=== PATIENT | male | born 1965 | race Caucasian/White ===

== ENCOUNTER 2019-06-28 15:46 | Emergency (ER) | payer SELFPAY ==
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
[2019-06-28] MEDS ORDERED: Orphenadrine Citrate IV* 30 MG/ML 2 ML VIAL IM ONE (16:39)
[2019-06-28] MEDS ORDERED: Ketorolac *IM* INJ* 60 MG/2 ML VIAL IM ONE (16:39)
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
[2019-06-28 20:53] VITALS: BP 166/100
== END 2019-06-28 20:52 | disposition home or self-care (01) ==
LOC: ED 15:46
DX: S16.1XXA Strain of muscle, fascia and tendon at neck level, initial encounter (principal); V49.40XA Driver injured in collision with unspecified motor vehicles in traffic accident, initial encounter; Y92.410 Unspecified street and highway as the place of occurrence of the external cause; M06.9 Rheumatoid arthritis, unspecified; E07.9 Disorder of thyroid, unspecified; E78.00 Pure hypercholesterolemia, unspecified; Z87.891 Personal history of nicotine dependence; Z79.899 Other long term (current) drug therapy
CPT/HCPCS: 70450; 72125; 96372; 99281; J1885; J2360

== ENCOUNTER 2019-12-16 19:12 | Emergency (ER) | payer MEDICARE ==
--- OUTSIDE RECORDS SUMMARY | 2019-12-16 19:21 | XMS REPORT | Continuity of Care Document ---
:1965 External Reference #:[id number] Author Name Amado La (transmitted by agent of provider Laura Woodward) Address [address] [place] [address] Problems Active Problems Provider Date Enthesopathy of wrist AND/OR carpus Ilsa La M.D. Onset: 03/07/2013 Social History Type Date Description Comments Sex Unknown ETOH Use Social Tobacco Use Start: Unknown End: Unknown Patient is a former smoker Recreational Drug Use Never Used Drugs Seat Belt/Car Seat Always uses seat belt Allergies, Adverse Reactions, Alerts Description No Known Drug Allergies Medications Active Medications SIG Qnty Indications Ordering Date Provider Naproxen 1 by mouth 180tabs G43.001 Amado La 06/20/2017 500mg Tablets twice a day as needed Propranolol HCL ER 1 by mouth 90caps G43.001 Amado La 06/20/2017 60mg Caps ER every day 24HR Levothyroxine Sodium 1 PO Q Day 90tabs E03.9 Amado La 07/11/2016 50mcg Tablets Ranitidine HCL 1 by mouth 180tabs K21.9 Amado La 02/17/2016 150mg Tablets twice a day as needed Triamcinolone Acetonide apply three 60gm Amado La 01/27/2016 0.1% times a day Cream as needed Atorvastatin Calcium 1 by mouth 90tabs E78.5 Amado La 10/19/2015 20mg Tablets every day Calcium 600-D 1 by mouth 180tabs M81.0 Amado La 07/21/2015 [id number] twice a day Tablets Mylanta Gas Relief Maximum 1 by mouth K21.9 Amado La Strength every 2 hours Prednisone 1 by mouth Amado La 5mg Tablets once a day Hydroxychloroquine Sulfate 1 by mouth Unknown 200mg twice a day Tablets Medications Administered in Office Medication SIG Qnty Indications Ordering Provider Date Office Emergency Care Ilsa La M.D. 04/16/2019 Injection PPD Injection Mariano Lal 10/30/2013 Immunizations CPT Code Status Date Vaccine Lot # [id number] Given 05/22/2019 Influenza Virus (Quadrivalent)Splitvirus 3 [id number] Years Of Age And Older 16986 Given 05/22/2019 Influenza Virus Vaccine, Quadrivalent, Split, Preservative Free Q2035 Given 07/04/2017 Influenza Virus (Quadrivalent)Splitvirus 3 [id number] Years Of Age And Older Q2035 Given 07/04/2017 Influenza Virus (Quadrivalent)Splitvirus 3 Years Of Age And Older Q2037 Given 10/30/2013 Influenza Vaccine (Fluvirin) 5 Years Of Age Or 7kj4r Older [address] Given 03/12/2013 Tetanus,Diphtheria,Adut/Adol Pertussis [id number] Vital Signs Date Vital Result Comment 11/27/2019 10:30am BP Systolic 128 mmHg BP Diastolic 78 mmHg Heart Rate 78 /min Height 70 inches 5'10" Weight 255.00 lb BMI (Body Mass Index) 36.6 kg/m2 09/04/2019 12:20pm BP Systolic 142 mmHg BP Diastolic 96 mmHg Heart Rate 82 /min Height 70 inches 5'10" Weight 269.00 lb BMI (Body Mass Index) 38.6 kg/m2 Results Test Acquired Date Facility Test Result H/L Range Note Lipid Panel, 11/13/2019 [facility] Cholesterol, 165 mg/dL Normal < 200 [address] [place], [place] [id number] [phone] HDL Cholesterol 34 mg/dL Low > Or = 40 Triglycerides 325 mg/dL High <150 2 LDL-Cholesterol 88 mg/dL(calc) Normal 3 Chol/HDLC Ratio 4.9 (calc) Normal <5.0 Non HDL Cholesterol 131 mg/dL(calc) High <130 4 General Health Panel 11/13/2019 [facility] TSH 3.02 mIU/L Normal 0.40-4.[address] [facility] [address] [place] [address] [phone] T4, Free 1.1 ng/dL Normal 0.8-1.8 CBC (Includes 11/13/2019 [facility] White 8.5 Thousand/uL Normal 3.8-10.8 Diff/PLT) 6 [facility] [place] [address] Count Red Blood Cell Count 5.34 Million/uL Normal 4.20-5.80 Hemoglobin 14.6 g/dL Normal 13.2-17.1 Hematocrit 44.1 % Normal 38.5-50.0 MCV 82.6 fL Normal 80.0-100.0 MCH 27.3 pg Normal 27.0-33.0 MCHC 33.1 g/dL Normal 32.0-36.0 RDW 13.4 % Normal 11.0-15.0 Platelet Count 316 Thousand/uL Normal 140-400 MPV 10.0 fL Normal 7.5-12.5 Absolute Neutrophils 5415 cells/uL Normal 0011-2407 Absolute Lymphocytes 2032 cells/uL Normal 850-3900 Absolute Monocytes 740 cells/uL Normal 200-950 Absolute Eosinophils 272 cells/uL Normal 15-500 Absolute Basophils 43 cells/uL Normal 0-200 Neutrophils 63.7 % Normal 38-80 Lymphocytes 23.9 % Normal 15-49 Monocytes 8.7 % Normal 0-13 Eosinophils 3.2 % Normal 0-8 Basophils 0.5 % Normal 0-2 Comprehensive Metabolic 11/13/2019 [facility] Glucose 95 mg/dL Normal 65-99 5 Panel [address] [place], [place] [id number] [phone] Urea Nitrogen (BUN) 11 mg/dL Normal 7-25 Creatinine 0.86 mg/dL Normal 0.70-1.33 6 eGFR Non-Afr. Chilean 100 mL/min/1.73m2 Normal > Or = 60 eGFR 116 mL/min/1.73m2 Normal > Or = 60 BUN/Creatinine Ratio NOT APPLICABLE (calc) 6-22 Sodium 141 mmol/L Normal 135-146 Potassium 4.2 mmol/L Normal 3.5-5.3 Chloride 105 mmol/L Normal 98-110 Carbon Dioxide 27 mmol/L Normal 20-32 Calcium 9.3 mg/dL Normal 8.6-10.3 Protein, Total 7.4 g/dL Normal 6.1-8.1 Albumin 4.2 g/dL Normal 3.6-5.1 Globulin 3.2 g/dL(calc) Normal 1.9-3.7 Albumin/Globulin Ratio 1.3 (calc) Normal 1.0-2.5 Bilirubin, Total 0.6 mg/dL Normal 0.2-1.2 Alkaline Phosphatase 112 U/L Normal 35-144 Ast 23 U/L Normal 10-35 Alt 28 U/L Normal 9-46 Laboratory test 11/13/2019 [facility] Enhanced PDF PDF IMAGE finding [address] [place] [address] [id number] [phone] CBC (Includes 08/20/2019 [facility] White Blood Cell 7.4 Normal 3.8 -1 Diff/PLT) [address] Count Thousand/u 0.8 [place] [address] L [phone] Red Blood Cell Count 5.18 Million/uL Normal 4.20-5.80 Hemoglobin 14.6 g/dL Normal 13.2-17.1 Hematocrit 44.3 % Normal 38.5-50.0 MCV 85.5 fL Normal 80.0-100.0 MCH 28.2 pg Normal 27.0-33.0 MCHC 33.0 g/dL Normal 32.0-36.0 RDW 12.5 % Normal 11.0-15.0 Platelet Count 317 Thousand/uL Normal 140-400 MPV 9.9 fL Normal 7.5-12.5 Absolute Neutrophils 4270 cells/uL Normal 9738-9377 Absolute Lymphocytes 2087 cells/uL Normal 850-3900 Absolute Monocytes 725 cells/uL Normal 200-950 Absolute Eosinophils 281 cells/uL Normal 15-500 Absolute Basophils 37 cells/uL Normal 0-200 Neutrophils 57.7 % Normal 38-80 Lymphocytes 28.2 % Normal 15-49 Monocytes 9.8 % Normal 0-13 Eosinophils 3.8 % Normal 0-8 Basophils 0.5 % Normal 0-2 Comprehensive Metabolic 08/20/2019 [facility] Glucose 102 mg/dL High 65-99 [address] [place], [place] [id number] [phone] Urea Nitrogen (BUN) 10 mg/dL Normal 7-25 Creatinine 0.97 mg/dL Normal 0.70-1.33 8 eGFR Non-Afr. Chilean 89 mL/min/1.73m2 Normal > Or = 60 eGFR 104 mL/min/1.73m2 Normal > Or = 60 BUN/Creatinine Ratio NOT APPLICABLE (calc) 6-22 Sodium 139 mmol/L Normal 135-146 Potassium 4.0 mmol/L Normal 3.5-5.3 Chloride 104 mmol/L Normal 98-110 Carbon Dioxide 30 mmol/L Normal 20-32 Calcium 9.1 mg/dL Normal 8.6-10.3 Protein, Total 7.0 g/dL Normal 6.1-8.1 Albumin 4.1 g/dL Normal 3.6-5.1 Globulin 2.9 g/dL(calc) Normal 1.9-3.7 Albumin/Globulin Ratio 1.4 (calc) Normal 1.0-2.5 Bilirubin, Total 0.5 mg/dL Normal 0.2-1.2 Alkaline Phosphatase 96 U/L Normal 40-115 Ast 21 U/L Normal 10-35 Alt 22 U/L Normal 9-46 TSH+Free T4 08/20/2019 [facility] TSH 2.56 mIU/L Normal 0.40-4.[address] [place] [address] [phone] T4, Free 0.9 ng/dL Normal 0.8-1.8 Lipid Panel, 08/20/2019 [facility] Cholesterol, 166 mg/dL Normal < [address] [place] [address] [phone] HDL Cholesterol 34 mg/dL Low >40 Triglycerides 336 mg/dL High <150 9 LDL-Cholesterol 87 mg/dL(calc) Normal 10 Chol/HDLC Ratio 4.9 (calc) Normal <5.0 Non HDL Cholesterol 132 mg/dL(calc) High <130 11 Laboratory test 08/20/2019 [facility] Enhanced PDF Report PDF IMAGE finding [address] [id number] OFF [place], [place] [id number] [phone] 1 FASTING:YES FASTING: YES 2 If a non-fasting specimen was collected, consider repeat triglyceride testing on a fasting specimen if clinically indicated. Manuel et al. J. of Clin. Lipidol. 2015;9:129-169. 3 Reference range: <100 Desirable range <100 mg/dL for primary prevention; <70 mg/dL for patients with CHD or diabetic patients with > or = 2 CHD risk factors. LDL-C is now calculated using the Jigar-Waggoner calculation, which is a validated novel method providing better accuracy than the Friedewald equation in the estimation of LDL-C. Jigar SS et al. FALGUNI. 2013;310(19): 2642-0191 (http://education.[employer]/faq/BUY247) 4 For patients with diabetes plus 1 major ASCVD risk factor, treating to a non-HDL-C goal of <100 mg/dL (LDL-C of <70 mg/dL) is considered a therapeutic option. 5 Fasting reference interval 6 For patients >49 years of age, the reference limit for Creatinine is approximately 13% higher for people identified as -Chilean. 7 Fasting reference interval For someone without known diabetes, a glucose value between 100 and 125 mg/dL is consistent with prediabetes and should be confirmed with a follow-up test. 8 For patients >49 years of age, the reference limit for Creatinine is approximately 13% higher for people identified as -Chilean. 9 If a non-fasting specimen was collected, consider repeat triglyceride testing on a fasting specimen if clinically indicated. Jackson et al. J. of Clin. Lipidol. 2015;9:129-169. 10 Reference range: <100 Desirable range <100 mg/dL for primary prevention; <70 mg/dL for patients with CHD or diabetic patients with > or = 2 CHD risk factors. LDL-C is now calculated using the Jigar-Waggoner calculation, which is a validated novel method providing better accuracy than the Friedewald equation in the estimation of LDL-C. Jiagr CLEVELAND et al. FALGUNI. 2013;310(19): 3302-8623 (http://[employer]/faq/YYO175) 11 For patients with diabetes plus 1 major ASCVD risk factor, treating to a non-HDL-C goal of <100 mg/dL (LDL-C of <70 mg/dL) is considered a therapeutic option. 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 N52.01 Erectile dysfunction due to arterial insufficiency I34.0 Nonrheumatic mitral (valve) insufficiency D18.00 Hemangioma unspecified site K21.9 Gastro-esophageal reflux disease without esophagitis R73.01 Impaired fasting glucose L85.1 Acquired keratosis [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 G47.33 Obstructive sleep apnea (adult) (pediatric) G43.001 Migraine w/o aura, not intractable, with status migrainosus I65.23 Occlusion and stenosis of bilateral carotid arteries E03.9 Hypothyroidism, unspecified Office Visit 09/04/2019 12:00p Main Office Amado La E66.09 Other obesity due to excess calories I11.9 Hypertensive heart disease without heart failure 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 N52.01 Erectile dysfunction due to arterial insufficiency I34.0 Nonrheumatic mitral (valve) insufficiency D18.00 Hemangioma unspecified site K21.9 Gastro-esophageal reflux disease without esophagitis R73.01 Impaired fasting glucose L85.1 Acquired keratosis [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 Z71.82 Exercise counseling Z71.9 Counseling, unspecified Z71.3 Dietary counseling and surveillance Office Visit 08/27/2019 12:00p Main Office Amado La I11.9 Hypertensive heart disease without heart failure E66.09 Other obesity due to excess calories G47.33 Obstructive sleep apnea (adult) (pediatric) 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 N52.01 Erectile dysfunction due to arterial insufficiency I34.0 Nonrheumatic mitral (valve) insufficiency D18.00 Hemangioma unspecified site K21.9 Gastro-esophageal reflux disease without esophagitis G43.001 Migraine w/o aura, not intractable, with status migrainosus I65.23 Occlusion and stenosis of bilateral carotid arteries E03.9 Hypothyroidism, unspecified R73.01 Impaired fasting glucose Office Visit 08/01/2019 11:30a Main Office Amado La L85.1 Acquired keratosis [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 I11.9 Hypertensive heart disease without heart failure Assessments Date Code Description Provider 11/27/2019 E66.09 Other obesity due to excess calories [facility] 11/27/2019 I11.9 Hypertensive heart disease without heart failure [facility] 11/27/2019 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 [facility] 11/27/2019 N52.01 Erectile dysfunction due to arterial insufficiency [facility] 11/27/2019 I34.0 Nonrheumatic mitral (valve) insufficiency [facility] 11/27/2019 D18.00 Hemangioma unspecified site [facility] 11/27/2019 K21.9 Gastro-esophageal reflux disease without esophagitis [facility] 11/27/2019 R73.01 Impaired fasting glucose [facility] 11/27/2019 L85.1 Acquired keratosis [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 [facility] 11/27/2019 G47.33 Obstructive sleep apnea (adult) (pediatric) [facility] 11/27/2019 G43.001 Migraine without aura, not intractable, with status [facility] migraino 11/27/2019 I65.23 Occlusion and stenosis of bilateral carotid arteries [facility] 11/27/2019 E03.9 Hypothyroidism, unspecified [facility] 09/04/2019 E66.09 Other obesity due to excess calories [facility] 09/04/2019 I11.9 Hypertensive heart disease without heart failure [facility] 09/04/2019 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 [facility] 09/04/2019 N52.01 Erectile dysfunction due to arterial insufficiency [facility] 09/04/2019 I34.0 Nonrheumatic mitral (valve) insufficiency [facility] 09/04/2019 D18.00 Hemangioma unspecified site [facility] 09/04/2019 K21.9 Gastro-esophageal reflux disease without esophagitis [facility] 09/04/2019 R73.01 Impaired fasting glucose [facility] 09/04/2019 L85.1 Acquired keratosis [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 [facility] 09/04/2019 Z71.82 Exercise counseling [facility] 09/04/2019 Z71.9 Counseling, unspecified Mariano Lal 09/04/2019 Z71.3 Dietary counseling and surveillance Mariano Lal 08/27/2019 I11.9 Hypertensive heart disease without heart failure Mariano Lal 08/27/2019 E66.09 Other obesity due to excess calories Mariano Lal 08/27/2019 G47.33 Obstructive sleep apnea (adult) (pediatric) Mariano Lal 08/27/2019 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 Mariano aLl 08/27/2019 N52.01 Erectile dysfunction due to arterial insufficiency Mariano Lal 08/27/2019 I34.0 Nonrheumatic mitral (valve) insufficiency Mariano Lal 08/27/2019 D18.00 Hemangioma unspecified site Mariano Lal 08/27/2019 K21.9 Gastro-esophageal reflux disease without esophagitis Mariano Lal 08/27/2019 G43.001 Migraine without aura, not intractable, with status Amado La migraino 08/27/2019 I65.23 Occlusion and stenosis of bilateral carotid arteries Mariano Lal 08/27/2019 E03.9 Hypothyroidism, unspecified Mariano Lal 08/27/2019 R73.01 Impaired fasting glucose Mariano Lal 08/01/2019 L85.1 Acquired keratosis [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 Mariano Lal 08/01/2019 I11.9 Hypertensive heart disease without heart failure Amado La Plan of Treatment Future Appointment(s):02/17/2020 9:00 am - Nurse at Main [id number]/25/2020 11: 15 am - Amado La at Main Office Functional Status Description No Information Available Mental Status Description No Information Available Referrals Refer to Dr Reason for Referral Status Appt Date [facility] Closed 09/17/2019 [facility], [address] [address] [phone] Dario Nagel MD Closed 10/14/2019 [facility], [address] [address] [phone]
--- OUTSIDE RECORDS SUMMARY | 2019-12-16 19:21 | XMS REPORT | Continuity of Care Document ---
:1965 External Reference #:[id number] Author Name Amado La (transmitted by agent of provider Laura Woodward) Address [address] [place] [address] Problems Active Problems Provider Date Enthesopathy of [...] by mouth 180tabs M81.0 Amado La 07/21/2015 [id number] twice a day Tablets Mylanta Gas Relief [...] Q2035 Given 05/22/2019 Influenza Virus (Quadrivalent)Splitvirus 3 [id number] Years Of Age And Older 45415 Given 05/22/2019 Influenza Virus Vaccine, Quadrivalent, Split, Preservative Free Q2035 Given 07/04/2017 Influenza Virus (Quadrivalent)Splitvirus 3 [id number] Years Of Age And Older Q2035 Given 07/04/2017 Influenza Virus (Quadrivalent)Splitvirus 3 Years Of Age And Older Q2037 Given 10/30/2013 Influenza Vaccine (Fluvirin) 5 Years Of Age Or 7kj4r Older [address] Given 03/12/2013 Tetanus,Diphtheria,Adut/Adol Pertussis [id number] Vital Signs Date Vital Result Comment 11/27/2019 [...] H/L Range Note Lipid Panel, 11/13/2019 [facility] Cholesterol, 165 mg/dL Normal < 200 [address] [place], [place] [id number] [phone] HDL Cholesterol 34 mg/dL Low > Or = 40 Triglycerides 325 mg/dL High <150 2 LDL-Cholesterol 88 mg/dL(calc) Normal 3 Chol/HDLC Ratio 4.9 (calc) Normal <5.0 Non HDL Cholesterol 131 mg/dL(calc) High <130 4 General Health Panel 11/13/2019 [facility] TSH 3.02 mIU/L Normal 0.40-4.[address] [facility] [address] [place] [address] [phone] T4, Free 1.1 ng/dL Normal 0.8-1.8 CBC (Includes 11/13/2019 [facility] White 8.5 Thousand/uL Normal 3.8-10.8 Diff/PLT) 6 [facility] [place] [address] Count Red Blood Cell Count 5.34 Million/uL Normal 4.20-5.80 Hemoglobin 14.6 g/dL Normal 13.2-17.1 Hematocrit 44.1 % Normal 38.5-50.0 MCV 82.6 fL Normal 80.0-100.0 MCH 27.3 pg Normal 27.0-33.0 MCHC 33.1 g/dL Normal 32.0-36.0 RDW 13.4 % Normal 11.0-15.0 Platelet Count 316 Thousand/uL Normal 140-400 MPV 10.0 fL Normal 7.5-12.5 Absolute Neutrophils 5415 cells/uL Normal 1102-7591 Absolute Lymphocytes 2032 cells/uL Normal 850-3900 Absolute Monocytes 740 cells/uL Normal 200-950 Absolute Eosinophils 272 cells/uL Normal 15-500 Absolute Basophils 43 cells/uL Normal 0-200 Neutrophils 63.7 % Normal 38-80 Lymphocytes 23.9 % Normal 15-49 Monocytes 8.7 % Normal 0-13 Eosinophils 3.2 % Normal 0-8 Basophils 0.5 % Normal 0-2 Comprehensive Metabolic 11/13/2019 [facility] Glucose 95 mg/dL Normal 65-99 5 Panel [address] [place], [place] [address] [phone] Urea Nitrogen (BUN) 11 mg/dL Normal 7-25 Creatinine 0.86 mg/dL Normal 0.70-1.33 6 eGFR Non-Afr. French 100 mL/min/1.73m2 Normal > Or = 60 [...] U/L Normal 9-46 Laboratory test 11/13/2019 [facility] Enhanced PDF PDF IMAGE finding [address] [place] [address] [id number] [phone] CBC (Includes 08/20/2019 [facility] White Blood Cell 7.4 Normal 3.8 -1 Diff/PLT) [address] Count Thousand/u 0.8 [place] [address] L [phone] Red Blood Cell Count 5.18 Million/uL Normal 4.20-5.80 Hemoglobin 14.6 g/dL Normal 13.2-17.1 Hematocrit 44.3 % Normal 38.5-50.0 MCV 85.5 fL Normal 80.0-100.0 MCH 28.2 pg Normal 27.0-33.0 MCHC 33.0 g/dL Normal 32.0-36.0 RDW 12.5 % Normal 11.0-15.0 Platelet Count 317 Thousand/uL Normal 140-400 MPV 9.9 fL Normal 7.5-12.5 Absolute Neutrophils 4270 cells/uL Normal 6958-8424 Absolute Lymphocytes 2087 cells/uL Normal 850-3900 Absolute Monocytes 725 cells/uL Normal 200-950 Absolute Eosinophils 281 cells/uL Normal 15-500 Absolute Basophils 37 cells/uL Normal 0-200 Neutrophils 57.7 % Normal 38-80 Lymphocytes 28.2 % Normal 15-49 Monocytes 9.8 % Normal 0-13 Eosinophils 3.8 % Normal 0-8 Basophils 0.5 % Normal 0-2 Comprehensive Metabolic 08/20/2019 [facility] Glucose 102 mg/dL High 65-99 [address] [place], [place] [address] [phone] Urea Nitrogen (BUN) 10 mg/dL Normal 7-25 Creatinine 0.97 mg/dL Normal 0.70-1.33 8 eGFR Non-Afr. French 89 mL/min/1.73m2 Normal > Or = 60 [...] U/L Normal 9-46 TSH+Free T4 08/20/2019 [facility] TSH 2.56 mIU/L Normal 0.40-4.[address] [place] [address] [phone] T4, Free 0.9 ng/dL Normal 0.8-1.8 Lipid Panel, 08/20/2019 [facility] Cholesterol, 166 mg/dL Normal < [address] [place] [address] [phone] HDL Cholesterol 34 mg/dL Low >40 Triglycerides 336 mg/dL High <150 9 LDL-Cholesterol 87 mg/dL(calc) Normal 10 Chol/HDLC Ratio 4.9 (calc) Normal <5.0 Non HDL Cholesterol 132 mg/dL(calc) High <130 11 Laboratory test 08/20/2019 [facility] Enhanced PDF Report PDF IMAGE finding [address] [id number] [place], [place] [id number] [phone] 1 FASTING:YES FASTING: YES 2 If a [...] LDL-C. Jigar SS et al. FALGUNI. 2013;310(19): 6362-1624 (http://education.[employer]AvePoint/faq/ITC355) 4 For patients with diabetes plus 1 major ASCVD risk factor, treating to a non-HDL-C goal of <100 mg/dL (LDL-C of <70 mg/dL) is considered a therapeutic option. 5 Fasting reference interval 6 For patients >49 years of age, the reference limit for Creatinine is approximately 13% higher for people identified as -French. 7 Fasting reference interval For someone without known diabetes, a glucose value between 100 and 125 mg/dL is consistent with prediabetes and should be confirmed with a follow-up test. 8 For patients >49 years of age, the reference limit for Creatinine is approximately 13% higher for people identified as -French. 9 If a non-fasting specimen was collected, [...] equation in the estimation of LDL-C. Jigar CLEVELAND et al. FALGUNI. 2013;310(19): 4926-3069 (http://E[employer]AvePoint/faq/XMD173) 11 For patients with diabetes plus 1 major ASCVD risk factor, treating to a non-HDL-C goal of <100 mg/dL (LDL-C of <70 mg/dL) is considered a therapeutic option. 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 [facility] 11/27/2019 N52.01 Erectile dysfunction due to arterial insufficiency [facility] 11/27/2019 I34.0 Nonrheumatic mitral (valve) insufficiency [facility] 11/27/2019 D18.00 Hemangioma unspecified site [facility] 11/27/2019 K21.9 Gastro-esophageal reflux disease without esophagitis [facility] 11/27/2019 R73.01 Impaired fasting glucose [facility] 11/27/2019 L85.1 Acquired keratosis [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 [facility] 11/27/2019 G47.33 Obstructive sleep apnea (adult) (pediatric) [facility] 11/27/2019 G43.001 Migraine without aura, not intractable, with status [facility] migraino 11/27/2019 I65.23 Occlusion and stenosis of bilateral carotid arteries [facility] 11/27/2019 E03.9 Hypothyroidism, unspecified [facility] 09/04/2019 E66.09 Other obesity due to excess calories [facility] 09/04/2019 I11.9 Hypertensive heart disease without heart failure [facility] 09/04/2019 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9 Counseling, unspecified Bessie Amado 09/04/2019 Z71.3 Dietary counseling and surveillance Jakealexandrea Amado 08/27/2019 I11.9 Hypertensive heart disease without heart failure Jakealexandrea Amado 08/27/2019 E66.09 Other obesity due to excess calories Bessie Amado 08/27/2019 G47.33 Obstructive sleep apnea (adult) (pediatric) Jakealexandrea Amado 08/27/2019 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 Bessie Amado 08/27/2019 N52.01 Erectile dysfunction due to arterial insufficiency Bessie Amado 08/27/2019 I34.0 Nonrheumatic mitral (valve) insufficiency Bessie Amado 08/27/2019 D18.00 Hemangioma unspecified site Bessie Amado 08/27/2019 K21.9 Gastro-esophageal reflux disease without esophagitis Jakealexandrea Amaod 08/27/2019 G43.001 Migraine without aura, not intractable, with status Mariano Lal migraino 08/27/2019 I65.23 Occlusion and stenosis of bilateral carotid arteries Jakealexandrea Amado 08/27/2019 E03.9 Hypothyroidism, unspecified Mariano Lal 08/27/2019 R73.01 Impaired fasting glucose Jakealexandrea Amado 08/01/2019 L85.1 Acquired keratosis [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 Bessie Amado 08/01/2019 I11.9 Hypertensive heart disease without heart failure Amado La Plan of Treatment Future Appointment(s):02/17/2020 9:00 am - Nurse at Main Fzisyl8902/25/2020 11: 15 am - Amado La at Main Nsutgk4009/04/2019 - Mariano LalE66.09 Other obesity due to excess caloriesComments:Discussed health effects of obesity and healthy diet choices. Effect on other diseases and interaction of dietary factors stressed. Weight loss options discussed and information on community resources, various weight loss strategies and popular diets reviewed.I11.9 Hypertensive heart disease without heart failureComments:CONT. TO MONITOR BP, CONT. LOW SALT DIET Discussed lifestyle factors and role of diet and excerns incontrol of disease and treatment goals and targets. Medication side effects and compliance issues addressed as indicated. The importance of ongoing self monitoring of BP and the symptoms of complications such as TIA, CVA and AMI reviewed. The importance of reporting changes in between visits and side effects stressed. monitoring of patient provided BP checks and laboratory tests related to medicationreviewed. Discussed lifestyle factors and role of diet and excerns in control of disease and treatment goals and targets. Medication side effects and compliance issues addressed as indicated. The importance of ongoing self monitoring of BP and the symptoms of complications such as TIA, CVA and AMI reviewed. The importance of reporting changes in between visits and side effects stressed. monitoring of patient provided BP checks and laboratory tests related to medication reviewed.B02.23 Postherpetic jhjakszcyyuctiF71.01 Erectile dysfunction due to arterial insufficiencyComments:Discussed lifestyle factors including stress, exercise, obesity, alcohol, nicitine and dietary factors and the role they play. Medication use, side effects, timing, cautions and benefits discussed. Response to medication monitored and samples. When medications fail, suction aids discussed such as the ErecAid System. Discussed lifestyle factors including stress, exercise, obesity, alcohol, nicitine and dietary factors and the role they play. Medication use, side effects, timing, cautions and benefitsdiscussed. Response to medication monitored and samples. When medications fail, suction aids discussed such as the ErecAid System. Discussed lifestyle factors including stress, exercise, obesity, alcohol, nicitine and dietary factors and the role they play. Medication use, side effects, timing, cautions and benefits discussed. Response to medication monitored and samples. When medications fail, suction aids discussed such as the ErecAid System.I34.0 Nonrheumatic mitral (valve) insufficiencyComments: Issues of symptoms and aggravating lifestyle factors such as sleep, stress and dietary choices discussed. Symptoms and medication treatment and compliance and side effects discussed as needed. Need forSBE prophalaxis with antibiotics addressed and discussed where indicated. Follow up Echocardiogram as required.Discussed valvular pathology and need if indicated for antibiotic prophylaxis to prevent S.B.E. Medication compliance and side effects issues addressed. Follow up echocardiogram as warranted.Results of 2D echo and other testing reviewed and discussed with patient possible etiologies, progression prognosis and need for prophylactic antibiotics before dental procedures if warranted for S.B.E. prophylaxis. Routine follow up/ surveillance planned.D18.00 Hemangioma unspecified siteK21.9 Gastro-esophageal reflux disease without esophagitisComments:Discussed role of diet and excersize and weight reduction and contribution of common exacerbating factors/ substances such as stress/fatigue/caffeine/nicotine/chocolate/ foods.Signs and symptoms of disease progression discussed as well as necessity to promptly report changes or worsening and the need for medication compliance. Periodic measurement and follow up for serum Magnesium levels while on PPI.R73.01 Impaired fasting glucoseComments:diet and zwqmfrkV21.1 Acquired keratosis [keratoderma] palmaris et nmxvlwnftS34.82 Exercise tvnpuxgazeB04.9 Counseling, wzodlfwpogeH03.3 Dietary counseling and surveillance Functional Status Description No Information Available Mental Status Description No Information Available Referrals Refer to Dr Reason for Referral Status Appt Date Rolanda HEMANGIOMA Closed 09/17/2019 [facility], [address] [address] [phone] Dario Nagel MD Closed 10/14/[address] [place] [address] [place], [place] [address] [phone]
--- OUTSIDE RECORDS SUMMARY | 2019-12-16 19:21 | XMS REPORT | Continuity of Care Document ---
:1965 External Reference #:[id number] Author Name Amado La (transmitted by agent of provider Laura Woodward) Address [address] [place] [address] Problems Active Problems Provider Date Enthesopathy of [...] by mouth 180tabs M81.0 Amado La 07/21/2015 [id number] twice a day Tablets Mylanta Gas Relief Maximum 1 by mouth K21.9 Amado La Strength every 2 hours Prednisone 1 by mouth Amado La 5mg Tablets once a day Hydroxychloroquine Sulfate 1 by mouth Unknown 200mg twice a day Tablets Medications Administered in Office Medication SIG Qnty Indications Ordering Provider Date Office [facility] Ilas La M.D. 04/16/2019 Injection PPD Injection Mariano Lal 10/30/2013 Immunizations CPT Code Status Date Vaccine Lot # [id number] Given 05/22/2019 Influenza Virus (Quadrivalent)Splitvirus 3 [id number] Years Of Age And Older [address] Given 05/22/2019 Influenza Virus Vaccine, Quadrivalent, Split, Preservative Free Q2035 Given 07/04/2017 Influenza Virus (Quadrivalent)Splitvirus 3 [id number] Years Of Age And Older Q2035 Given 07/04/2017 Influenza Virus (Quadrivalent)Splitvirus 3 Years Of Age And Older Q2037 Given 10/30/2013 Influenza Vaccine (Fluvirin) 5 Years Of Age Or 7kj4r Older [address] Given 03/12/2013 Tetanus,Diphtheria,Adut/Adol Pertussis [id number] Vital Signs Date Vital Result Comment 11/27/2019 [...] H/L Range Note Lipid Panel, 11/13/2019 [facility] Cholesterol, 165 mg/dL Normal < 200 [address] [place], [place] [id number] [phone] HDL Cholesterol 34 mg/dL Low > Or = 40 Triglycerides 325 mg/dL High <150 2 LDL-Cholesterol 88 mg/dL(calc) Normal 3 Chol/HDLC Ratio 4.9 (calc) Normal <5.0 Non HDL Cholesterol 131 mg/dL(calc) High <130 4 General Health Panel 11/13/2019 [facility] TSH 3.02 mIU/L Normal 0.40-4.[address] [facility] [address] [place] [address] [phone] T4, Free 1.1 ng/dL Normal 0.8-1.8 CBC (Includes 11/13/2019 [facility] White 8.5 Thousand/uL Normal 3.8-10.8 Diff/PLT) 6 [facility] [place] [address] Count Red Blood Cell Count 5.34 Million/uL Normal 4.20-5.80 Hemoglobin 14.6 g/dL Normal 13.2-17.1 Hematocrit 44.1 % Normal 38.5-50.0 MCV 82.6 fL Normal 80.0-100.0 MCH 27.3 pg Normal 27.0-33.0 MCHC 33.1 g/dL Normal 32.0-36.0 RDW 13.4 % Normal 11.0-15.0 Platelet Count 316 Thousand/uL Normal 140-400 MPV 10.0 fL Normal 7.5-12.5 Absolute Neutrophils 5415 cells/uL Normal 7874-5776 Absolute Lymphocytes 2032 cells/uL Normal 850-3900 Absolute Monocytes 740 cells/uL Normal 200-950 Absolute Eosinophils 272 cells/uL Normal 15-500 Absolute Basophils 43 cells/uL Normal 0-200 Neutrophils 63.7 % Normal 38-80 Lymphocytes 23.9 % Normal 15-49 Monocytes 8.7 % Normal 0-13 Eosinophils 3.2 % Normal 0-8 Basophils 0.5 % Normal 0-2 Comprehensive Metabolic 11/13/2019 [facility] Glucose 95 mg/dL Normal 65-99 5 Panel 6 [place], [place] [address] [phone] Urea Nitrogen (BUN) 11 mg/dL Normal 7-25 Creatinine 0.86 mg/dL Normal 0.70-1.33 6 eGFR Non-Afr. Japanese 100 mL/min/1.73m2 Normal > Or = 60 [...] U/L Normal 9-46 Laboratory test 11/13/2019 [facility] Enhanced PDF PDF IMAGE finding [address] [place] [address] [id number] [phone] CBC (Includes 08/20/2019 [facility] White Blood Cell 7.4 Normal 3.8 -1 Diff/PLT) [address] Count Thousand/u [address] [place] [address] L [phone] Red Blood Cell Count 5.18 Million/uL Normal 4.20-5.80 Hemoglobin 14.6 g/dL Normal 13.2-17.1 Hematocrit 44.3 % Normal 38.5-50.0 MCV 85.5 fL Normal 80.0-100.0 MCH 28.2 pg Normal 27.0-33.0 MCHC 33.0 g/dL Normal 32.0-36.0 RDW 12.5 % Normal 11.0-15.0 Platelet Count 317 Thousand/uL Normal 140-400 MPV 9.9 fL Normal 7.5-12.5 Absolute Neutrophils 4270 cells/uL Normal 3370-0005 Absolute Lymphocytes 2087 cells/uL Normal 850-3900 Absolute Monocytes 725 cells/uL Normal 200-950 Absolute Eosinophils 281 cells/uL Normal 15-500 Absolute Basophils 37 cells/uL Normal 0-200 Neutrophils 57.7 % Normal 38-80 Lymphocytes 28.2 % Normal 15-49 Monocytes 9.8 % Normal 0-13 Eosinophils 3.8 % Normal 0-8 Basophils 0.5 % Normal 0-2 Comprehensive Metabolic 08/20/2019 [facility] Glucose 102 mg/dL High 65-99 [address], [place] [address] [phone] Urea Nitrogen (BUN) 10 mg/dL Normal 7-25 Creatinine 0.97 mg/dL Normal 0.70-1.33 8 eGFR Non-Afr. Japanese 89 mL/min/1.73m2 Normal > Or = 60 [...] U/L Normal 9-46 TSH+Free T4 08/20/2019 [facility] TSH 2.56 mIU/L Normal 0.40-4.[address] [place] [address] [phone] T4, Free 0.9 ng/dL Normal 0.8-1.8 Lipid Panel, 08/20/2019 [facility] Cholesterol, 166 mg/dL Normal < [address] [place] [address] [phone] HDL Cholesterol 34 mg/dL Low >40 Triglycerides 336 mg/dL High <150 9 LDL-Cholesterol 87 mg/dL(calc) Normal 10 Chol/HDLC Ratio 4.9 (calc) Normal <5.0 Non HDL Cholesterol 132 mg/dL(calc) High <130 11 Laboratory test 08/20/2019 [facility] Enhanced PDF Report PDF IMAGE finding [address] [id number], [place] [address] [phone] 1 FASTING:YES FASTING: YES 2 If a non-fasting specimen was collected, consider repeat triglyceride testing on a fasting specimen if clinically indicated. Maneul et al. J. of Clin. Lipidol. 2015;9:129-169. [...] LDL-C. Jigar SS et al. FALGUNI. 2013;310(19): 7304-4369 (http://education.CiviQ.DiscountDoc/faq/ZOS237) 4 For patients with diabetes plus 1 major ASCVD risk factor, treating to a non-HDL-C goal of <100 mg/dL (LDL-C of <70 mg/dL) is considered a therapeutic option. 5 Fasting reference interval 6 For patients >49 years of age, the reference limit for Creatinine is approximately 13% higher for people identified as -Japanese. 7 Fasting reference interval For someone without known diabetes, a glucose value between 100 and 125 mg/dL is consistent with prediabetes and should be confirmed with a follow-up test. 8 For patients >49 years of age, the reference limit for Creatinine is approximately 13% higher for people identified as -Japanese. 9 If a non-fasting specimen was collected, [...] LDL-C. Jigar CLEVELAND et al. FALGUNI. 2013;310(19): 6136-0059 (http://[employer].CiviQ.DiscountDoc/faq/SUZ625) 11 For patients with diabetes plus 1 major ASCVD risk factor, treating to a non-HDL-C goal of <100 mg/dL (LDL-C of <70 mg/dL) is considered a therapeutic option. 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 [facility] 11/27/2019 N52.01 Erectile dysfunction due to arterial insufficiency [facility] 11/27/2019 I34.0 Nonrheumatic mitral (valve) insufficiency [facility] 11/27/2019 D18.00 Hemangioma unspecified site [facility] 11/27/2019 K21.9 Gastro-esophageal reflux disease without esophagitis [facility] 11/27/2019 R73.01 Impaired fasting glucose [facility] 11/27/2019 L85.1 Acquired keratosis [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 [facility] 11/27/2019 G47.33 Obstructive sleep apnea (adult) (pediatric) [facility] 11/27/2019 G43.001 Migraine without aura, not intractable, with status [facility] migraino 11/27/2019 I65.23 Occlusion and stenosis of bilateral carotid arteries [facility] 11/27/2019 E03.9 Hypothyroidism, unspecified [facility] 09/04/2019 E66.09 Other obesity due to excess calories [facility] 09/04/2019 I11.9 Hypertensive heart disease without heart failure [facility] 09/04/2019 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 [facility] 09/04/2019 N52.01 Erectile dysfunction due to arterial insufficiency [facility] 09/04/2019 I34.0 Nonrheumatic mitral (valve) insufficiency [facility] 09/04/2019 D18.00 Hemangioma unspecified site [facility] 09/04/2019 K21.9 Gastro-esophageal reflux disease without esophagitis [facility] 09/04/2019 R73.01 Impaired fasting glucose [facility] 09/04/2019 L85.1 Acquired keratosis [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 [facility] 09/04/2019 Z71.82 Exercise counseling [facility] 09/04/2019 Z71.9 Counseling, unspecified Mariano Lal 09/04/2019 Z71.3 Dietary counseling and surveillance Mariano Lal 08/27/2019 I11.9 Hypertensive heart disease without heart failure Mariano Lal 08/27/2019 E66.09 Other obesity due to excess calories Mariano Lal 08/27/2019 G47.33 Obstructive sleep apnea (adult) (pediatric) Mariano Lal 08/27/2019 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 [address] [phone]
--- OUTSIDE RECORDS SUMMARY | 2019-12-16 19:21 | XMS REPORT | Continuity of Care Document ---
:1965 External Reference #:[id number] Author Name Amado La (transmitted by agent of provider Aleshia Avalos) Address [address] [place] [address] Problems Active Problems Provider Date Enthesopathy of [...] by mouth 180tabs M81.0 Amado La 07/21/2015 [id number] twice a day Tablets Mylanta Gas Relief [...] Q2035 Given 05/22/2019 Influenza Virus (Quadrivalent)Splitvirus 3 [id number] Years Of Age And Older [address]60 Given 05/22/2019 Influenza Virus Vaccine, Quadrivalent, Split, Preservative Free Q2035 Given 07/04/2017 Influenza Virus (Quadrivalent)Splitvirus 3 [id number] Years Of Age And Older Q2035 Given 07/04/2017 Influenza Virus (Quadrivalent)Splitvirus 3 Years Of Age And Older Q2037 Given 10/30/2013 Influenza Vaccine (Fluvirin) 5 Years Of Age Or 7kj4r Older [address] Given 03/12/2013 Tetanus,Diphtheria,Adut/Adol Pertussis [id number] Vital Signs Date Vital Result Comment 09/04/2019 12:20pm BP Systolic 142 mmHg BP Diastolic 96 mmHg Heart Rate 82 /min Height 70 inches 5'10" Weight 269.00 lb BMI (Body Mass Index) 38.6 kg/m2 08/27/2019 12:02pm BP Systolic 150 mmHg BP Diastolic 98 mmHg Heart Rate 80 /min Respiratory Rate 16 /min Weight 272.00 lb Results Test Acquired Date Facility Test Result H/L Range Note Lipid Panel, 11/13/2019 [facility] Cholesterol, 165 mg/dL Normal < 200 1 Standard [address] [place] [address] [phone] HDL Cholesterol 34 mg/dL Low > Or = 40 Triglycerides 325 mg/dL High <150 2 LDL-Cholesterol 88 mg/dL(calc) Normal 3 Chol/HDLC Ratio 4.9 (calc) Normal <5.0 Non HDL Cholesterol 131 mg/dL(calc) High <130 4 General Health Panel 11/13/2019 [facility] TSH 3.02 mIU/L Normal 0.40-4.[address] [facility] [address] [place], [place] [id number] [phone] T4, Free 1.1 ng/dL Normal 0.8-1.8 CBC (Includes 11/13/2019 [facility] White 8.5 Thousand/uL Normal 3.8-10.8 Diff/PLT) 6 [facility] [place] [address] Count Red Blood Cell Count 5.34 Million/uL Normal 4.20-5.80 Hemoglobin 14.6 g/dL Normal 13.2-17.1 Hematocrit 44.1 % Normal 38.5-50.0 MCV 82.6 fL Normal 80.0-100.0 MCH 27.3 pg Normal 27.0-33.0 MCHC 33.1 g/dL Normal 32.0-36.0 RDW 13.4 % Normal 11.0-15.0 Platelet Count 316 Thousand/uL Normal 140-400 MPV 10.0 fL Normal 7.5-12.5 Absolute Neutrophils 5415 cells/uL Normal 9489-1527 Absolute Lymphocytes 2032 cells/uL Normal 850-3900 Absolute Monocytes 740 cells/uL Normal 200-950 Absolute Eosinophils 272 cells/uL Normal 15-500 Absolute Basophils 43 cells/uL Normal 0-200 Neutrophils 63.7 % Normal 38-80 Lymphocytes 23.9 % Normal 15-49 Monocytes 8.7 % Normal 0-13 Eosinophils 3.2 % Normal 0-8 Basophils 0.5 % Normal 0-2 Comprehensive Metabolic 11/13/2019 [facility] Glucose 95 mg/dL Normal 65-99 5 Panel 6 [place] [address] [phone] Urea Nitrogen (BUN) 11 mg/dL Normal 7-25 Creatinine 0.86 mg/dL Normal 0.70-1.33 6 eGFR Non-Afr. Namibian 100 mL/min/1.73m2 Normal > Or = 60 [...] U/L Normal 9-46 Laboratory test 11/13/2019 [facility] Enhanced PDF PDF IMAGE finding [address] [place] [address] [id number] [phone] CBC (Includes 08/20/2019 [facility] White Blood Cell 7.4 Normal 3.8 -1 Diff/PLT) [address] Count Thousand/u 0.8 [place] [address] L [phone] Red Blood Cell Count 5.18 Million/uL Normal 4.20-5.80 Hemoglobin 14.6 g/dL Normal 13.2-17.1 Hematocrit 44.3 % Normal 38.5-50.0 MCV 85.5 fL Normal 80.0-100.0 MCH 28.2 pg Normal 27.0-33.0 MCHC 33.0 g/dL Normal 32.0-36.0 RDW 12.5 % Normal 11.0-15.0 Platelet Count 317 Thousand/uL Normal 140-400 MPV 9.9 fL Normal 7.5-12.5 Absolute Neutrophils 4270 cells/uL Normal 5314-5849 Absolute Lymphocytes 2087 cells/uL Normal 850-3900 Absolute Monocytes 725 cells/uL Normal 200-950 Absolute Eosinophils 281 cells/uL Normal 15-500 Absolute Basophils 37 cells/uL Normal 0-200 Neutrophils 57.7 % Normal 38-80 Lymphocytes 28.2 % Normal 15-49 Monocytes 9.8 % Normal 0-13 Eosinophils 3.8 % Normal 0-8 Basophils 0.5 % Normal 0-2 Comprehensive Metabolic 08/20/2019 [facility] Glucose 102 mg/dL High 65-99 [address] [place], [place] [id number] [phone] Urea Nitrogen (BUN) 10 mg/dL Normal 7-25 Creatinine 0.97 mg/dL Normal 0.70-1.33 8 eGFR Non-Afr. Namibian 89 mL/min/1.73m2 Normal > Or = 60 [...] U/L Normal 9-46 TSH+Free T4 08/20/2019 [facility] TSH 2.56 mIU/L Normal 0.40-4.[address] [place] [address] [phone] T4, Free 0.9 ng/dL Normal 0.8-1.8 Lipid Panel, 08/20/2019 [facility] Cholesterol, 166 mg/dL Normal < [address] [place] [address] [phone] HDL Cholesterol 34 mg/dL Low >40 Triglycerides 336 mg/dL High <150 9 LDL-Cholesterol 87 mg/dL(calc) Normal 10 Chol/HDLC Ratio 4.9 (calc) Normal <5.0 Non HDL Cholesterol 132 mg/dL(calc) High <130 11 Laboratory test 08/20/2019 [facility] Enhanced PDF Report PDF IMAGE finding [address] [id number] [place] [address] [phone] FASTING:YES FASTING: YES 2 If a [...] LDL-C. Jigar SS et al. FALGUNI. 2013;310(19): 4001-6095 (http://education.YoBucko.MindSumo/faq/TMT125) 4 For patients with diabetes plus 1 major ASCVD risk factor, treating to a non-HDL-C goal of <100 mg/dL (LDL-C of <70 mg/dL) is considered a therapeutic option. 5 Fasting reference interval 6 For patients >49 years of age, the reference limit for Creatinine is approximately 13% higher for people identified as -Namibian. 7 Fasting reference interval For someone without known diabetes, a glucose value between 100 and 125 mg/dL is consistent with prediabetes and should be confirmed with a follow-up test. 8 For patients >49 years of age, the reference limit for Creatinine is approximately 13% higher for people identified as -Namibian. 9 If a non-fasting specimen was collected, [...] LDL-C. Jigar SS et al. FALGUNI. 2013;310(19): 2438-0243 (http://education.YoBucko.MindSumo/faq/ZXN439) 11 For patients with diabetes plus 1 major ASCVD risk factor, treating to a non-HDL-C goal of <100 mg/dL (LDL-C of <70 mg/dL) is considered a therapeutic option. 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 Amado La 09/04/2019 N52.01 Erectile dysfunction due to arterial insufficiency Amado La 09/04/2019 I34.0 Nonrheumatic mitral (valve) insufficiency Amado La 09/04/2019 D18.00 Hemangioma unspecified site Amado La 09/04/2019 K21.9 Gastro-esophageal reflux disease without esophagitis Amado La 09/04/2019 R73.01 Impaired fasting glucose Amado La 09/04/2019 L85.1 Acquired keratosis [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 Bessie Amado 09/04/2019 Z71.82 Exercise counseling Bessie Amado 09/04/2019 Z71.9 Counseling, unspecified Bessie Amado 09/04/2019 Z71.3 Dietary counseling and surveillance Bessie Amado 08/27/2019 I11.9 Hypertensive heart disease without heart failure Jakealexandrea Amado 08/27/2019 E66.09 Other obesity due to excess calories Bessie Amdao 08/27/2019 G47.33 Obstructive sleep apnea (adult) (pediatric) Bessie Amado 08/27/2019 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 Bessie Amado 08/27/2019 N52.01 Erectile dysfunction due to arterial insufficiency Bessie Amado 08/27/2019 I34.0 Nonrheumatic mitral (valve) insufficiency Bessie Amado 08/27/2019 D18.00 Hemangioma unspecified site Bessie Amado 08/27/2019 K21.9 Gastro-esophageal reflux disease without esophagitis Jakealexandrea Amado 08/27/2019 G43.001 Migraine without aura, not intractable, with status Mariano Lal migraino 08/27/2019 I65.23 Occlusion and stenosis of bilateral carotid arteries Jakealexandrea Amado 08/27/2019 E03.9 Hypothyroidism, unspecified Bessie Amado 08/27/2019 R73.01 Impaired fasting glucose JakealexandreaMarianol 08/01/2019 L85.1 Acquired keratosis [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 Bessie Amado 08/01/2019 I11.9 Hypertensive heart disease without heart failure Amado La Plan of Treatment Future Appointment(s):11/27/2019 10:30 am - Amado La at Main [id number] - Mariano LalE66.09 Other obesity due to excess caloriesComments:Discussed health effects of obesity and healthy diet choices. Effect on other diseases and interaction of dietary factors stressed. Weight loss options discussed and information on community resources,various weight loss strategies and popular diets reviewed.I11.9 Hypertensive heart disease without heart failureComments: CONT. TO MONITOR BP, CONT. LOW SALT DIET [...] laboratory tests related to medication reviewed.B02.23 Postherpetic aunbaijwgtbrgfD43.01 Erectile dysfunction due to arterial insufficiencyComments:Discussed lifestyle [...] as the ErecAid System.I34.0 Nonrheumatic mitral (valve) insufficiencyComments:Issues of symptoms and aggravating lifestyle factors such [...] of common exacerbating factors/ substances such as stress/ fatigue/caffeine/nicotine/chocolate/ foods.Signs and symptoms of disease progression discussed as well as necessity to promptly report changes or worsening and the need for medication compliance. Periodic measurement and follow up for serum Magnesium levels while on PPI.R73.01 Impaired fasting glucoseComments:diet and hcnfshwB07.1 Acquired keratosis [keratoderma] palmaris et ysxsvveviK10.82 Exercise mfmasrvwtbM07.9 Counseling, hskeyxhulxgD29.3 Dietary counseling and surveillance Functional Status Description No Information Available Mental Status Description No Information Available Referrals Refer to Dr Reason for Referral Status Appt Date Rolanda HEMANGIOMA Closed 09/17/2019 [facility], [address] [address] [phone] Dario Nagel MD Closed 10/14/[address] [place], [place] [address]dontae [place] [address] [phone]
--- OUTSIDE RECORDS SUMMARY | 2019-12-16 19:21 | XMS REPORT | Continuity of Care Document ---
:1965 External Reference #:[id number] Author Name Amado La (transmitted by agent of provider Laura Woodward) Address [address] [place] [address] Problems Active Problems Provider Date Enthesopathy of [...] Calcium 1 by mouth 90tabs E78.5 Amado aL 10/19/2015 20mg Tablets every day Calcium 600-D 1 by mouth 180tabs M81.0 Amado La 07/21/2015 [id number] twice a day Tablets Mylanta Gas Relief [...] Q2035 Given 05/22/2019 Influenza Virus (Quadrivalent)Splitvirus 3 [id number] Years Of Age And Older [address] Given 05/22/2019 Influenza Virus Vaccine, Quadrivalent, Split, Preservative Free Q2035 Given 07/04/2017 Influenza Virus (Quadrivalent)Splitvirus 3 [id number] Years Of Age And Older Q2035 Given 07/04/2017 Influenza Virus (Quadrivalent)Splitvirus 3 Years Of Age And Older Q2037 Given 10/30/2013 Influenza Vaccine (Fluvirin) 5 Years Of Age Or 7kj4r Older [address] Given 03/12/2013 Tetanus,Diphtheria,Adut/Adol Pertussis [id number] Vital Signs Date Vital Result Comment 11/27/2019 [...] H/L Range Note Lipid Panel, 11/13/2019 [facility] Cholesterol, 165 mg/dL Normal < 200 [address] [place], [place] [id number] [phone] HDL Cholesterol 34 mg/dL Low > Or = 40 Triglycerides 325 mg/dL High <150 2 LDL-Cholesterol 88 mg/dL(calc) Normal 3 Chol/HDLC Ratio 4.9 (calc) Normal <5.0 Non HDL Cholesterol 131 mg/dL(calc) High <130 4 General Health Panel 11/13/2019 [facility] TSH 3.02 mIU/L Normal 0.40-4.[address] [facility] [address] [place] [address] [phone] T4, Free 1.1 ng/dL Normal 0.8-1.8 CBC (Includes 11/13/2019 [facility] White 8.5 Thousand/uL Normal 3.8-10.8 Diff/PLT) 6 [facility] [place] [address] Count Red Blood Cell Count 5.34 Million/uL Normal 4.20-5.80 Hemoglobin 14.6 g/dL Normal 13.2-17.1 Hematocrit 44.1 % Normal 38.5-50.0 MCV 82.6 fL Normal 80.0-100.0 MCH 27.3 pg Normal 27.0-33.0 MCHC 33.1 g/dL Normal 32.0-36.0 RDW 13.4 % Normal 11.0-15.0 Platelet Count 316 Thousand/uL Normal 140-400 MPV 10.0 fL Normal 7.5-12.5 Absolute Neutrophils 5415 cells/uL Normal 7781-1494 Absolute Lymphocytes 2032 cells/uL Normal 850-3900 Absolute Monocytes 740 cells/uL Normal 200-950 Absolute Eosinophils 272 cells/uL Normal 15-500 Absolute Basophils 43 cells/uL Normal 0-200 Neutrophils 63.7 % Normal 38-80 Lymphocytes 23.9 % Normal 15-49 Monocytes 8.7 % Normal 0-13 Eosinophils 3.2 % Normal 0-8 Basophils 0.5 % Normal 0-2 Comprehensive Metabolic 11/13/2019 [facility] Glucose 95 mg/dL Normal 65-99 5 Panel 6 [place], [place] [address] [phone] Urea Nitrogen (BUN) 11 mg/dL Normal 7-25 Creatinine 0.86 mg/dL Normal 0.70-1.33 6 eGFR Non-Afr. Liberian 100 mL/min/1.73m2 Normal > Or = 60 [...] U/L Normal 9-46 Laboratory test 11/13/2019 [facility] Enhanced PDF PDF IMAGE finding [address] [place] [address] [id number] [phone] CBC (Includes 08/20/2019 [facility] White Blood Cell 7.4 Normal 3.8 -1 Diff/PLT) [address] Count Thousand/u 0.8 [place] [address] L [phone] Red Blood Cell Count 5.18 Million/uL Normal 4.20-5.80 Hemoglobin 14.6 g/dL Normal 13.2-17.1 Hematocrit 44.3 % Normal 38.5-50.0 MCV 85.5 fL Normal 80.0-100.0 MCH 28.2 pg Normal 27.0-33.0 MCHC 33.0 g/dL Normal 32.0-36.0 RDW 12.5 % Normal 11.0-15.0 Platelet Count 317 Thousand/uL Normal 140-400 MPV 9.9 fL Normal 7.5-12.5 Absolute Neutrophils 4270 cells/uL Normal 3225-9794 Absolute Lymphocytes 2087 cells/uL Normal 850-3900 Absolute Monocytes 725 cells/uL Normal 200-950 Absolute Eosinophils 281 cells/uL Normal 15-500 Absolute Basophils 37 cells/uL Normal 0-200 Neutrophils 57.7 % Normal 38-80 Lymphocytes 28.2 % Normal 15-49 Monocytes 9.8 % Normal 0-13 Eosinophils 3.8 % Normal 0-8 Basophils 0.5 % Normal 0-2 Comprehensive Metabolic 08/20/2019 [facility] Glucose 102 mg/dL High 65-99 [address] [place], [place] [id number] [phone] Urea Nitrogen (BUN) 10 mg/dL Normal 7-25 Creatinine 0.97 mg/dL Normal 0.70-1.33 8 eGFR Non-Afr. Liberian 89 mL/min/1.73m2 Normal > Or = 60 [...] U/L Normal 9-46 TSH+Free T4 08/20/2019 [facility] TSH 2.56 mIU/L Normal 0.40-4.[address] [place] [address] [phone] T4, Free 0.9 ng/dL Normal 0.8-1.8 Lipid Panel, 08/20/2019 [facility] Cholesterol, 166 mg/dL Normal < [address] [place] [address] [phone] HDL Cholesterol 34 mg/dL Low >40 Triglycerides 336 mg/dL High <150 9 LDL-Cholesterol 87 mg/dL(calc) Normal 10 Chol/HDLC Ratio 4.9 (calc) Normal <5.0 Non HDL Cholesterol 132 mg/dL(calc) High <130 11 Laboratory test 08/20/2019 [facility] Enhanced PDF Report PDF IMAGE finding [address] [id number] OFF [place], [place] [address] [phone] 1 FASTING:YES FASTING: YES 2 If a [...] LDL-C. Jigar SS et al. FALGUNI. 2013;310(19): 3786-3150 (http://education.Echologics.CreditPing.com/faq/LSR871) 4 For patients with diabetes plus 1 major ASCVD risk factor, treating to a non-HDL-C goal of <100 mg/dL (LDL-C of <70 mg/dL) is considered a therapeutic option. 5 Fasting reference interval 6 For patients >49 years of age, the reference limit for Creatinine is approximately 13% higher for people identified as -Liberian. 7 Fasting reference interval For someone without known diabetes, a glucose value between 100 and 125 mg/dL is consistent with prediabetes and should be confirmed with a follow-up test. 8 For patients >49 years of age, the reference limit for Creatinine is approximately 13% higher for people identified as -Liberian. 9 If a non-fasting specimen was collected, [...] LDL-C. Jigar C[place] et al. FALGUNI. 2013;310(19): 6182-0814 (http://ipadio.Echologics.CreditPing.com/faq/BQJ204) 11 For patients with diabetes plus 1 major ASCVD risk factor, treating to a non-HDL-C goal of <100 mg/dL (LDL-C of <70 mg/dL) is considered a therapeutic option. 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 [facility] 11/27/2019 N52.01 Erectile dysfunction due to arterial insufficiency [facility] 11/27/2019 I34.0 Nonrheumatic mitral (valve) insufficiency [facility] 11/27/2019 D18.00 Hemangioma unspecified site [facility] 11/27/2019 K21.9 Gastro-esophageal reflux disease without esophagitis [facility] 11/27/2019 R73.01 Impaired fasting glucose [facility] 11/27/2019 L85.1 Acquired keratosis [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 [facility] 11/27/2019 G47.33 Obstructive sleep apnea (adult) (pediatric) [facility] 11/27/2019 G43.001 Migraine without aura, not intractable, with status [facility] migraino 11/27/2019 I65.23 Occlusion and stenosis of bilateral carotid arteries [facility] 11/27/2019 E03.9 Hypothyroidism, unspecified [facility] 09/04/2019 E66.09 Other obesity due to excess calories [facility] 09/04/2019 I11.9 Hypertensive heart disease without heart failure [facility] 09/04/2019 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 [facility] 09/04/2019 N52.01 Erectile dysfunction due to arterial insufficiency [facility] 09/04/2019 I34.0 Nonrheumatic mitral (valve) insufficiency [facility] 09/04/2019 D18.00 Hemangioma unspecified site [facility] 09/04/2019 K21.9 Gastro-esophageal reflux disease without esophagitis [facility] 09/04/2019 R73.01 Impaired fasting glucose [facility] 09/04/2019 L85.1 Acquired keratosis [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 [facility] 09/04/2019 Z71.82 Exercise counseling [facility] 09/04/2019 Z71.9 Counseling, unspecified Mariano [...] Appointment(s):02/17/2020 9:00 am - Nurse at Main [id number]/25/2020 11: 15 am - Amado La at Main Office Functional Status Description No Information Available Mental Status Description No Information Available Referrals Refer to Dr Reason for Referral Status Appt Date [facility] HEMANGIOMA Closed 09/17/2019 [facility], [address] [address] [phone] Dario Nagel MD Closed 10/14/2019 [facility], [place] [address] [phone]
--- OUTSIDE RECORDS SUMMARY | 2019-12-16 19:21 | XMS REPORT | Summary of Care ---
:1965 Author Organization [facility] Address [address] [place] [address] Care Team Providers Name Role Phone Amado La MD Primary Care Provider Reason for Visit Reason Comments Follow-up Encounter Details Date Type Department Care Team Description 11/12/2019 Office Visit Jostin Luther, Seropositive rheumatoid arthritis (Primary Dx); Rheumatology MD Best High risk medication use; [address] (current) use of systemic steroids; [place], [place] [address] Long-term use of Plaquenil [id number] [place] [address] [phone] Allergies No Known Allergiesdocumented as of this encounter (statuses as of 11/14/2019) Medications Medication Sig Dispensed Refills Start End Date Status Date atorvastatin (LIPITOR) Take 20 mg 0 Active 20 MG tablet by mouth daily meloxicam (MOBIC) 7.5 Take 7.5 mg 0 Active MG tablet by mouth daily levothyroxine Take 50 mcg 0 Active (SYNTHROID, LEVOTHROID) by mouth 50 MCG tablet Daily ranitidine (ZANTAC) 150 Take 150 mg 0 Active MG tablet by mouth Two Times Daily propranolol (INDERAL 0 Active LA) 60 MG 24 hr capsule 7 pantoprazole (PROTONIX) TAKE ONE 0 Active 40 MG tablet TABLET BY 9 MOUTH EVERY DAY AT 6 30 Leflunomide 20 MG Oral Take 1 30 tablet 11 11/10/19 Active Tablet (ARAVA) tablet by 0 21 mouth daily predniSONE 5 MG Oral Take 1 30 tablet 5 12/12/19 Active Tablet (DELTASONE) tablet by 0 20 mouth daily Hydroxychloroquine Take 2 60 tablet 11 11/10/19 Active Sulfate 200 MG Oral tablets by 0 21 Tablet (PLAQUENIL) mouth daily hydroxychloroquine Take 2 60 tablet 11 11/12/19 Discontinued (PLAQUENIL) 200 MG tablets by 9 20 (Reorder) tablet mouth daily Leflunomide 20 MG Oral Take 1 90 tablet 0 11/12/19 Discontinued Tablet (ARAVA) tablet by 9 20 mouth daily documented as of this encounter (statuses as of 11/14/2019) Active Problems Problem Noted Date Seropositive rheumatoid arthritis 09/17/2018 High risk medication use 09/17/2018 documented as of this encounter (statuses as of 11/14/2019) Social History Tobacco Use Types Packs/Day Years Used Date Former Smoker Quit: 10/09/2000 Smokeless Tobacco: Never Used Tobacco Cessation: Counseling Given: No Alcohol Use Drinks/Week oz/Week Comments Yes 1 per week Sex Assigned at Date Recorded Not on file Job Start Date Occupation Industry Not on file Not on file Not on file Travel History Travel Start Travel End No recent travel history available. documented as of this encounter Last Filed Vital Signs Vital Sign Reading Time Taken Comments Blood Pressure 136/88 11/12/2019 2:00 PM EST Pulse 69 11/12/2019 2:00 PM EST Temperature 36.6 11/12/2019 2:00 PM EST C (97.9 F) Respiratory Rate 16 11/12/2019 2:00 PM EST Oxygen Saturation 96% 11/12/2019 2:00 PM EST Inhaled Oxygen Concentration - - Weight 115.7 kg (255 lb) 11/12/2019 2:00 PM EST Height 175.3 cm (5' 9") 11/12/2019 2:00 PM EST Body Mass Index 37.66 11/12/2019 2:00 PM EST documented in this encounter Patient Instructions Patient InstructionsBest Luther MD - 11/12/2019 2:00 PM ESTleflunomide 1 pill per day Hydroxychloroquine 2 pills per day Prednisone 1 pill per day. documented in this encounter Progress Notes NaranjoBest Saba MD - 11/12/2019 2:00 PM EST Subjective: Patient ID: Hua Blackman is a 54 y.o. male. He has seropositive rheumatoid arthritis, currently on leflunomide 20 mg per day , prednisone 5 mg per day and hydroxychloroquine 200 mg per day, although he should be taking 400 mg per day. In the past, he has been treated with multiple biologics including Actemra, Humira, Orencia, Xeljanz, Enbrel, Rituxan , as well as Olumiant, which had to be stopped due to either side effects or lack of efficacy, but mostly because of side effects. Since his last appointment, he has been doing well. The pain has been better controlled. He is tolerating his medications well. He still has arthralgias localizedmostly in his hands, usually worse with activity, intensity as bad as 5 to 6 out of 10. Rheumatologic review of systems is otherwise unremarkable. Blood work done at the time of his last appointment is also unremarkable. MUSCULOSKELETAL EXAM: I do not appreciate significant synovitis. He does have tenderness in MCPs, PIPs bilaterally. ASSESSMENT: Seropositive rheumatoid arthritis seems to have significantly improved with combination therapy of flutamide, Plaquenil, low-dose prednisone. PLAN: 1. I told the patient to make sure that he takes 400 mg per day of hydroxychloroquine. 2. Continue prednisone and Arava without changes. 3. Routine labs today. 4. If continued improvement, we will attempt to decrease steroids at the time of his next appointment in 4 months. Results for orders placed or performed in visit on 11/12/19 Sedimentation rate, automated Result Value Ref Range Sed Rate - ESR 31 (H) <20 mm/hr Inflammatory C-Reactive Protein (CRP) Result Value Ref Range C Reactive Protein 4.0 <8.0 mg/L Creatinine with GFR Result Value Ref Range Creatinine 0.80 0.70 - 1.20 mg/dL GFR Non 2008 CDK-EPI >90 >60 mL/min/1.73m2 GFR 2008 CKD-EPI >90 >60 mL/min/1.73m2 CBC and Differential Result Value Ref Range White Blood Cell 9.7 4 - 10 10*3/uL Red Blood Cell 5.12 4.6 - 6.1 10*6/uL Hemoglobin 14.7 13.5 - 18 g/dL Hematocrit 43.1 41 - 53 % Mean Cell Volume 84.2 80 - 96 fL Mean Cell Hemoglobin 28.6 27 - 33 pg Mean Cell Hgb Conc 34.0 32.0 - 36.0 g/dL Red Cell Dist Width 14.3 11.5 - 14.5 % Platelet Count 286 150 - 400 10*3/uL Differential Type Manual Diff Neutrophil 73 % Lymphocyte 18 % Monocyte 7 % Eosinophil 2 % Abs Neutrophil 7.13 (H) 1.8 - 7.0 10*3/uL Abs Lymphocyte 1.71 1.2 - 4.0 10*3/uL Abs Monocyte 0.67 0 - 0.8 10*3/uL Abs Eosinophil 0.19 0 - 0.5 10*3/uL Poikilocytosis 1+ AST Result Value Ref Range AST/SGO 25 <40 U/L ALT Result Value Ref Range ALT/SGP 29 <41 U/L HPI Hua has a past medical history of Arthritis, Hyperlipidemia, Hypertension , and Thyroid disease. Hua has a past surgical history that includes Carpal tunnel release and left elbow. His family history includes Arthritis in his mother; Cancer in his father. Hua reports that he quit smoking about 19 years ago. He has never used smokeless tobacco. He reports current alcohol use. No history on file for drug. Hua has a current medication list which includes the following prescription (s): atorvastatin, hydroxychloroquine, leflunomide, levothyroxine, meloxicam, pantoprazole, prednisone, propranolol, and ranitidine. Hua has No Known Allergies. Review of Systems Constitutional: Negative. HENT: Negative. Eyes: Negative. Respiratory: Negative. Cardiovascular: Negative. Gastrointestinal: Negative. Endocrine: Negative. Genitourinary: Negative. Musculoskeletal: Positive for arthralgias. Negative for joint swelling. Skin: Negative. Allergic/Immunologic: Negative. Neurological: Negative. Hematological: Negative. Psychiatric/Behavioral: Negative. Objective: Physical Exam Vitals signs reviewed. Constitutional: Appearance: He is well-developed. HENT: Head: Normocephalic and atraumatic. Eyes: Conjunctiva/sclera: Conjunctivae normal. Neck: Thyroid: No thyromegaly. Trachea: No tracheal deviation. Cardiovascular: Rate and Rhythm: Normal rate and regular rhythm. Pulmonary: Effort: Pulmonary effort is normal. No respiratory distress. Musculoskeletal: General: Tenderness present. No swelling. Skin: General: Skin is warm and dry. Neurological: Mental Status: He is alert and oriented to person, place, and time. documented in this encounter Plan of Treatment Date Type Specialty Care Team Description 03/17/2020 Office Visit Rheumatology Best Luther MD [address] [facility] 2[address] [place] [address] [phone] Health Maintenance Due Date Last Done Comments MMR Vaccines (1 of 1 - Standard [birth year]19/1966 series) Varicella Vaccines (1 of 2 - 02/19/1968 2-dose childhood series) DTaP,Tdap,and Td Vaccines (1 - 1974 Tdap) HIV Screening 02/19/1980 Colon Cancer Screening 10 yrs 2017 Influenza Vaccine 07/09/2019 Pneumococcal Vaccine: 65+ Years (1 02/19/2032 of 2 - PCV13) HIB Vaccines Aged Out No longer eligible based on patient's age to complete this topic Hepatitis A Vaccines Aged Out No longer eligible based on patient's age to complete this topic Hepatitis B Vaccines Aged Out No longer eligible based on patient's age to complete this topic IPV Vaccines Aged Out No longer eligible based on patient's age to complete this topic Pneumococcal Vaccine: Pediatrics Aged Out No longer eligible based on (0 to 5 Years) and At-Risk patient's age to complete this Patients (6 to 64 Years) topic documented as of this encounter Procedures Procedure Name Priority Date/Time Associated Comments Diagnosis CREATININE WITH GFR Routine 11/12/2019 2:10 High risk Results for this PM EST medication use procedure are in the results section. SEDIMENTATION RATE, Routine 11/12/2019 2:10 High risk Results for this AUTOMATED PM EST medication use procedure are in the results section. CBC AND DIFFERENTIAL Routine 11/12/2019 2:10 High risk Results for this PM EST medication use procedure are in the results section. INFLAMMATORY Routine 11/12/2019 2:10 High risk Results for this C-REACTIVE PROTEIN PM EST medication use procedure are in (CRP) the results section. ALT Routine 11/12/2019 2:10 High risk Results for this PM EST medication use procedure are in the results section. AST Routine 11/12/2019 2:10 High risk Results for this PM EST medication use procedure are in the results section. documented in this encounter Results Sedimentation rate, automated (11/12/2019 2:10 PM EST) Pathologist [facility] Sed Rate - ESR 31 (H) <20 mm/hr [facility] Pathology Specimen EDTA Whole Blood Performing Organization Address [facility] Phone Number [facility] [address] [place] [address] [facility] [address] [place] [address] Pathology Inflammatory C-Reactive Protein (CRP) (11/12/2019 2:10 PM EST) [facility] C Reactive Protein 4.0 <8.0 mg/L [facility] Pathology Specimen Plasma Performing Organization Address [facility] Phone Number [facility] [address] [place] [address] [phone] [facility] [address] [place] [phone] Pathology Creatinine with GFR (11/12/2019 2:10 PM EST) [facility] Creatinine 0.80 0.70 - 1.20 [facility] mg/dL [facility] Pathology GFR Non >90 >60 [facility] Iraqi 2009 CDK-EPI mL/min/1.73m2 [facility] Pathology GFR >90 >60 [facility] 2009 CKD-EPI mL/min/1.73m2 [facility] Pathology Specimen Plasma Performing Organization Address [facility] Phone Number [facility] [address] [place] [address] [phone] [facility] [address] [place] [phone] Pathology CBC and Differential (11/12/2019 2:10 PM EST) [facility] White Blood Cell 9.7 4 - 10 10*3/uL [facility] Pathology Red Blood Cell 5.12 4.6 - 6.1 [facility] 10*6/uL [facility] Pathology Hemoglobin 14.7 13.5 - 18 g/dL [facility] Pathology Hematocrit 43.1 41 - 53 % [facility] Pathology Mean Cell Volume 84.2 80 - 96 fL [facility] Pathology Mean Cell Hemoglobin 28.6 27 - 33 pg [facility] Pathology Mean Cell Hgb Conc 34.0 32.0 - 36.0 [facility] g/dL [facility] Pathology Red Cell Dist Width 14.3 11.5 - 14.5 % [facility] Pathology Platelet Count 286 150 - 400 [facility] 10*3/uL [facility] Pathology Differential Type Manual Diff [facility] Pathology Neutrophil 73 % [facility] Pathology Lymphocyte 18 % [facility] Pathology Monocyte 7 % [facility] Pathology Eosinophil 2 % [facility] Pathology Abs Neutrophil 7.13 (H) 1.8 - 7.0 [facility] 10*3/uL [facility]ology Abs Lymphocyte 1.71 1.2 - 4.0 [facility] 10*3/uL [facility]ology Abs Monocyte 0.67 0 - 0.8 [facility] 10*3/uL [facility] Pathology Abs Eosinophil 0.19 0 - 0.5 [facility] 10*3/uL [facility] Pathology Poikilocytosis 1+ [facility] Pathology Specimen EDTA Whole Blood Performing Organization Address [facility] Phone Number [facility] [address] [place] [address] [facility] [address] [place] [address] Pathology AST (11/12/2019 2:10 PM EST) AST/SGO 25 <40 U/L [facility] Pathology Specimen Plasma Performing Organization Address [facility] Phone Number [facility] [address] [place] [address] [facility] [address] [place] [address] Pathology ALT (11/12/2019 2:10 PM EST) ALT/SGP 29 <41 U/L [facility] Pathology Specimen Plasma Performing Organization Address [facility] Phone Number [facility] [address] [place] [address] [phone] [facility] [address] [place] [address] Pathology documented in this encounter Visit Diagnoses Diagnosis Seropositive rheumatoid arthritis - Primary Rheumatoid arthritis High risk medication use Encounter for long-term (current) use of other medications detention (current) use of systemic steroids Long-term use of Plaquenil documented in this encounter
[2019-12-16 19:43] VITALS: BP 143/88
--- NOTE | 2019-12-16 19:46 | UC ---
FLU HPI - HPI Summary HPI Summary: Onset last night shortness of breath, headache, vomiting, temp. as high 103.5, joint pain, eye pain. - History of Current Complaint Chief Complaint: UCGeneralIllness Stated Complaint: FEVER,BODY ACHES, NAUSEA Time Seen by Provider: 12/16/19 19:45 Hx Obtained From: Patient Onset/Duration: Sudden Onset, Lasting Days Severity Currently: Severe Severity Initially: Severe Pain Intensity: 10 - Allergy/Home Medications Allergies/Adverse Reactions: Allergies Allergy/AdvReac Type Severity Reaction Status Date / Time No Known Allergies Allergy Verified 06/28/19 15:55 Home Medications: Home Medications Ibuprofen TAB* [Advil TAB*] 400 mg PO Q6H PRN 02/17/14 [History Confirmed ] Leflunomide (NF) [Arava (Nf)] 20 mg PO DAILY 06/28/19 [History Confirmed ] Levothyroxine TAB* [Synthroid TAB*] 50 mcg PO DAILY 06/28/19 [History Confirmed 12/16/19] Propranolol TAB* [Inderal TAB*] 60 mg PO DAILY 06/28/19 [History Confirmed 12/15] predniSONE 5 mg TAB [Deltasone 5 mg TAB] 5 mg PO DAILY 06/28/19 [History Confirmed 12/16/19] Atorvastatin* [Lipitor*] 20 mg PO DAILY 12/16/19 [History Confirmed 12/16/19] Calcium Carbonate/Vitamin D3 [Calcium 500 +D3 500-600 mg-Unit] 1 tab PO DAILY [History Confirmed 12/16/19] DOXYcycline CAP(*) [DOXYcycline 100MG CAP(*)] 100 mg PO BID #14 cap 12/16/19 [Rx ] Hydroxychloroquine TAB* [Plaquenil TAB*] 200 mg PO BID 12/16/19 [History Confirmed 12/16/19] Naproxen [Naproxen 500 mg tab] 500 mg PO BID 12/16/19 [History Confirmed ] predniSONE [Prednisone 20 MG TAB] 40 mg PO DAILY #10 tablet 12/16/19 [Rx] raNITIdine HCL [Ranitidine HCl] 150 mg PO BID 12/16/19 [History Confirmed ] PMH/Surg Hx/FS Hx/Imm Hx Previously Healthy: Yes - Surgical History Surgical History: Yes Surgery Procedure, Year, and Place: Left Elbow Nerve Surgery, 1996, [place]. Right CTR, 2012, [facility] - Family History Known Family History: Negative: Diabetes - Social History Alcohol Use: Rare Alcohol Amount: 6 pack a month Substance Use Type: None Smoking Status (MU): Former Smoker Review of Systems All Other Systems Reviewed And Are Negative: Yes Constitutional: Positive: Fever, Fatigue ENT: Positive: Sore Throat, Nasal Discharge Respiratory: Positive: Cough Cardiovascular: Positive: Chest Pain Musculoskeletal: Positive: Arthralgia, Myalgia Neurological/Mental Status: Positive: Headache Is Patient Immunocompromised?: No Physical Exam Triage Information Reviewed: Yes Appearance: Well-Nourished, Ill-Appearing, Pain Distress Vital Signs: Initial Vital Signs Temp 99.8 F 12/16/19 19:40 Pulse 89 12/16/19 19:40 Resp 20 12/16/19 19:40 BP 143/88 12/16/19 19:40 Pulse Ox 95 12/16/19 19:40 Vital Signs Reviewed: Yes Flu Course/Dx - Course Course Of Treatment: hx obtained, exam performed ,meds reviewed, positive for FLu A - Differential Dx/Diagnosis Differential Diagnosis/HQI/PQRI: Influenza Provider Diagnosis: Influenza A, Lower respiratory infection Discharge ED - Sign-Out/Discharge Documenting (check all that apply): Patient Departure All imaging exams completed and their final reports reviewed: No Studies - Discharge Plan Condition: Stable Disposition: HOME Patient Education Materials: Influenza (ED) Referrals: Amado La MD [Primary Care Provider] - Additional Instructions: 1. take the medication as prescribed. 2. Ibuprofen and tylenol for pain and fever. 3. Increase fluids and eat as tolerated 4. REST 5. FOllow up in ER with any worsening respiratory issues. - Billing Disposition and Condition Condition: STABLE Disposition: Home
[2019-12-16 19:56] LABS: Influenza A Molecular POSITIVE (Negative)
[2019-12-16] MEDS ORDERED: Albuterol/Ipratropium NEB.SOL* Albuterol 2.5 MG/Ipratropium 0.5 MG 3 ML INH ONE (20:02)
[2019-12-16] MEDS ORDERED: DOXYcycline CAP(*) 100 MG PO ONE (20:22)
--- NOTE | 2019-12-16 20:26 | UC ---
Course/Dx - Diagnoses Provider Diagnoses: Influenza A, Lower respiratory infection Discharge ED - Sign-Out/Discharge Documenting (check all that apply): Patient Departure All imaging exams completed and their final reports reviewed: No - Discharge Plan Condition: Stable Disposition: HOME Prescriptions: DOXYcycline CAP(*) [DOXYcycline 100MG CAP(*)] 100 mg PO BID #14 cap predniSONE [Prednisone 20 MG TAB] 40 mg PO DAILY #10 tablet Patient Education Materials: Influenza (ED) Referrals: Amado La MD [Primary Care Provider] - Additional Instructions: 1. take the medication as prescribed. 2. Ibuprofen and tylenol for pain and fever. 3. Increase fluids and eat as tolerated 4. REST 5. FOllow up in ER with any worsening respiratory issues. - Billing Disposition and Condition Condition: STABLE Disposition: Home
--- NOTE | 2019-12-17 13:16 | UC ---
- Progress Note Progress Note: chest xray report: IMPRESSION: #. Stigmata of obstructive lung disease. #. No compelling evidence for pneumonia. Course/Dx - Diagnoses Provider Diagnoses: Influenza A, Lower respiratory infection Discharge ED - Sign-Out/Discharge Documenting (check all that apply): Patient Departure All imaging exams completed and their final reports reviewed: Yes - Discharge Plan Condition: Stable Disposition: HOME Prescriptions: DOXYcycline CAP(*) [DOXYcycline 100MG CAP(*)] 100 mg PO BID #14 cap predniSONE [Prednisone 20 MG TAB] 40 mg PO DAILY #10 tablet Patient Education Materials: Influenza (ED) Referrals: Amado La MD [Primary Care Provider] - Additional Instructions: 1. take the medication as prescribed. 2. Ibuprofen and tylenol for pain and fever. 3. Increase fluids and eat as tolerated 4. REST 5. FOllow up in ER with any worsening respiratory issues, or any unmanagable symtpoms - Billing Disposition and Condition Condition: STABLE Disposition: Home
== END 2019-12-16 20:43 | disposition home or self-care (01) ==
LOC: UCCORT 19:12
DX: J22 Unspecified acute lower respiratory infection (principal); J10.1 Influenza due to other identified influenza virus with other respiratory manifestations; Z87.891 Personal history of nicotine dependence
CPT/HCPCS: 71046; 99213; A9270-GY; G0463; J7512